=== PATIENT | female | born 2005 | race Two or more races ===

== ENCOUNTER 2024-01-13 18:54 | Emergency (ER) | payer OTHER ==
[2024-01-13 18:59] VITALS: BP 124/83; PULSE 70; RESP 20; TEMP 98.6; BMI 33.6
[2024-01-13] MEDS ORDERED: AMOX TR/POT CLAV 875MG/125MG TABLETS (FP) ONE (19:44)
[2024-01-13] MEDS: AMOX TR/POT CLAV 875MG/125MG TABLETS (FP) PO ONE (19:45)
== END 2024-01-13 19:56 | disposition home or self-care (01) ==
LOC: FER 18:54
DX: S61.551A Open bite of right wrist, initial encounter (principal); W55.01XA Bitten by cat, initial encounter
CPT/HCPCS: 99283-25